=== PATIENT | male | born 1990 | race African-American/Black ===

== ENCOUNTER 2021-09-28 20:30 | Emergency (ER) | payer MEDICAID, OTHER ==
[~2021-09-28] VITALS: Ht 182.9 cm; Wt 83.9 kg
--- NOTE | 2021-09-28 20:50 | NUR ---
BIBS C/O SOB X 7PM DOES NOT HAVE INHALER W/ HIM, 99O2 SAT NOTED. PATIENT WAS DX WITH ASTHMA A YEAR AGO. PLACED COMFORTABLY IN BED. VITALS CHECKED.
--- NOTE | 2021-09-28 20:53 | NUR ---
TO ER BED 7. BIBS C/O SOB X 1 HOUR. PT STATES "DOES NOT HAVE RX INHALER WITH HIM". DENIES ANY CHEST PAIN. PT O2 SAT 99 NOTED. CONNECTED TO MONITOR. AWAITING MD MALAVE
--- NOTE | 2021-09-28 20:56 | NUR ---
SEEN BY DR LOCO AT BEDSIDE
[2021-09-28] MEDS ORDERED: predniSONE 20 MG TABLET ONE (20:59)
[2021-09-28] MEDS ORDERED: predniSONE 20 MG TABLET PO ONE (21:00)
[2021-09-28] MEDS ORDERED: PRED50TA PO (21:00)
[2021-09-28] MEDS ORDERED: ALBUTEROL FS 2.5 MG/3 ML VIAL.NEB NEB ONE (21:00)
[2021-09-28] MEDS ORDERED: IPRATROPIUM NEB FS 0.5 MG/2.5 ML AMPUL.NEB NEB ONE (21:00)
[2021-09-28] MEDS ORDERED: ALBU8.5H8 INH (21:00)
[2021-09-28] MEDS ORDERED: ALBUTEROL FS 2.5 MG/3 ML VIAL.NEB ONE ×2 (21:01)
[2021-09-28] MEDS ORDERED: IPRATROPIUM NEB FS 0.5 MG/2.5 ML AMPUL.NEB ONE (21:01)
--- NOTE | 2021-09-28 21:06 | NUR ---
RT AT BEDSIDE
[2021-09-28 21:44] VITALS: BP 140/74
--- NOTE | 2021-09-28 21:44 | NUR ---
Patient discharged to home in stable condition. Written and verbal after care instructions given. Patient verbalizes understanding of instruction.
== END 2021-09-28 21:44 | disposition home or self-care (01) ==
LOC: ER 20:36
DX: J45.901 Unspecified asthma with (acute) exacerbation (principal); Z79.51 Long term (current) use of inhaled steroids; Z79.52 Long term (current) use of systemic steroids
CPT/HCPCS: 94640; 99283; J7512